=== PATIENT | female | born 1985 | race African-American/Black ===

== ENCOUNTER 2018-01-25 17:10 | Observation (INO) | payer OTHER ==
[2018-01-25 17:36] VITALS: BP 130/61
[2018-01-25] MEDS ORDERED: PNV1TABL54 PO (17:42)
[2018-01-25] MEDS ORDERED: ASPI81 PO (17:42)
[2018-01-25] MEDS ORDERED: METHY250 PO (17:42)
[2018-01-25 18:10] LABS: APPEARANCE,URINE CLEAR (CLEAR); BILIRUBIN,URINE NEGATIVE (NEGATIVE); GLUCOSE, URINE (UA) NEGATIVE (NEGATIVE); KETONES,URINE NEGATIVE (NEGATIVE); LEUKOCYTE ESTERASE ,URINE NEGATIVE (NEGATIVE); NITRATE,URINE NEGATIVE (NEGATIVE); OCCULT BLOOD,URINE NEGATIVE (NEGATIVE); PROTEIN,URINE NEGATIVE (NEGATIVE)
== END 2018-01-25 20:05 | disposition home or self-care (01) ==
LOC: 4S 17:10
PROVIDERS: ADMIT Obstetrics & Gynecology; ATTEND Obstetrics & Gynecology
DX: O26.892 Other specified pregnancy related conditions, second trimester (principal); R31.9 Hematuria, unspecified; Z3A.24 24 weeks gestation of pregnancy
CPT/HCPCS: 59025; 76805; 81003; 87086; G0378